=== PATIENT | female | born 1975 | race Caucasian/White ===

== ENCOUNTER 2016-12-26 13:40 | Emergency (ER) | payer BC ==
[2016-12-26 14:38] LABS: #Basophils 0.1 thou/uL (0.0-0.2); #Eosinphils 0.1 thou/uL (0.0-0.7); #Lymphocytes 2.5 thou/uL (1.20-3.40); #Monocytes 0.4 thou/uL (0.11-0.59); #Neutrophils 6.1 thou/uL (1.40-6.50); %Basophils 1.4 % (0.0-1.0); %Eosinophils 0.7 % (0.0-10.0); %Lymphocytes 27.3 % (21.0-51.0); %Monocytes 4.3 % (0.0-10.0); %Neutrophils 66.3 % (42.0-75.0); Hemoglobin 16.6 g/dL (12.0-16.0); Mean Corpuscular HGB CONC 33.8 g/dL (32.0-36.0); Mean Corpuscular Hemoglobin 32.5 pg (27.0-31.0); Mean Corpuscular Volume 96.3 fl (81.0-99.0); Mean Platelet Volume 9.6 fL (7.4-10.4); Platelet Count 251 thou/uL (130-400); RBC Distribution Width 11.1 % (11.5-14.5); White Blood Cell (WBC) Count 9.2 thou/uL (4.8-10.8)
[2016-12-26 14:45] LABS: BHCG - Serum NEGATIVE (NEGATIVE); Pregs Control Background? CLEAR/WHITE (CLR/WHITE); Pregs Control Bar Appear? YES (CONTROL BAR)
[2016-12-26 14:50] LABS: ALT (SGPT) 26 U/L (0-55); Albumin 4.4 g/dL (3.5-5.0); Alkaline Phosphatase 50 U/L (40-150); Anion Gap 14 mmol/L (10-20); BUN (Urea Nitrogen) 11 mg/dL (7.0-18.7); Bilirubin, Total 0.6 mg/dL (0.2-1.2); Calc. Creatinine Clearance 0 mL/min (70-130); Calcium 9.3 mg/dL (7.8-10.44); Carbon Dioxide 22 mmol/L (22-29); Chloride 112 mmol/L (98-107); Estimated GFR-MDRD 78; Globulin 3.1 g/dL (2.4-3.5); Glucose 73 mg/dL (70-105); Potassium 4.6 mmol/L (3.5-5.1); Protein, Total 7.5 g/dL (6.0-8.3); Sodium 143 mmol/L (136-145)
[2016-12-26 14:54] LABS: AST (SGOT) 29 U/L (5-34)
[2016-12-26] MEDS ORDERED: Ketorolac Tromethamine 30 MG/ML VIAL ONE (15:13)
[2016-12-26] MEDS ORDERED: diphenhydrAMINE HCl 50 MG/ML 1 ML VIAL ONE (15:13)
[2016-12-26] MEDS ORDERED: Magnesium Sulfate 2 GM/100 ML BAG ONE (15:13)
[2016-12-26] MEDS ORDERED: Metoclopramide HCl 10 MG/2 ML VIAL ONE (15:15)
--- NOTE | 2016-12-26 15:17 | CT ---
CT BRAIN WITHOUT CONTRAST: Date: 12/26/[address] was done emergently for evaluation of headache. FINDINGS: The ventricles are normal in size with no shift. No intracranial bleeding, extra-axial hematoma, or subarachnoid blood was found. There is no sign of mass, edema, or stroke. The calvarium appears norm al. The visible paranasal sinuses are clear, as are the mastoid air cells. IMPRESSION: No acute intracranial finding. POS: HOME
== END 2016-12-26 14:52 | disposition home or self-care (01) ==
LOC: BURERS 13:40
DX: G43.909 Migraine, unspecified, not intractable, without status migrainosus (principal); F17.210 Nicotine dependence, cigarettes, uncomplicated
CPT/HCPCS: 70450; 80053; 84703; 85025; 96365; 96367; 96375; J1200; J1885; J2765; J3475

== ENCOUNTER 2017-02-03 14:35 | Outpatient (CLI) | payer BC | END 2017-02-03 14:36 | LOC: LABLEX 14:35 | PROVIDERS: ATTEND Family Medicine | DX: R82.90 Unspecified abnormal findings in urine (principal) | CPT/HCPCS: 87086 ==

== ENCOUNTER 2018-08-12 14:22 | Emergency (ER) | payer BC ==
[2018-08-12] MEDS ORDERED: Morphine 4 MG/ML VIAL ONE (14:42)
[2018-08-12] MEDS ORDERED: Ondansetron PF 4 MG/2 ML Vial ONE (14:46)
[2018-08-12 14:52] LABS: #Basophils 0.1 thou/uL (0.0-0.2); #Eosinphils 0.1 thou/uL (0.0-0.7); #Lymphocytes 3.2 thou/uL (1.20-3.40); #Monocytes 0.4 thou/uL (0.11-0.59); #Neutrophils 5.2 thou/uL (1.40-6.50); %Basophils 1.7 % (0.0-1.0); %Eosinophils 0.7 % (0.0-10.0); %Lymphocytes 35.2 % (21.0-51.0); %Monocytes 4.8 % (0.0-10.0); %Neutrophils 57.6 % (42.0-75.0); Hemoglobin 16.4 g/dL (12.0-16.0); Mean Corpuscular HGB CONC 34.2 g/dL (32.0-36.0); Mean Corpuscular Hemoglobin 30.9 pg (27.0-31.0); Mean Corpuscular Volume 90.5 fL (78.0-98.0); Mean Platelet Volume 9.9 fL (7.4-10.4); Platelet Count 295 thou/uL (130-400); RBC Distribution Width 11.3 % (11.5-14.5); Red Blood Cell (RBC) Count 5.32 mill/uL (4.20-5.40)
[2018-08-12 14:56] LABS: Bilirubin Negative (Negative); Blood, Urine Negative (Negative); Clarity Clear (Clear); Glucose, Urine (Dipstick) Negative (Negative); Leukocyte Negative (Negative); Nitrite Negative (Negative); Protein, Urine (Dipstick) Negative (Neg-Trace); Urobilinogen 0.2 mg/dL (0.2-1.0); pH, Urine 7.5 (5.0-9.0)
[2018-08-12 14:58] LABS: Pregnancy Test - Urine (BHCG) Negative (Negative); Pregu Control Background? CLEAR/WHITE (CLR/WHITE); Pregu Control Bar Appear? YES (CONTROL BAR)
[2018-08-12 15:14] LABS: ALT (SGPT) 23 U/L (8-55); AST (SGOT) 19 U/L (5-34); Albumin 4.8 g/dL (3.5-5.0); Alkaline Phosphatase 54 U/L (40-150); Anion Gap 12 mmol/L (10-20); BUN (Urea Nitrogen) 8 mg/dL (7.0-18.7); Bilirubin, Total 0.4 mg/dL (0.2-1.2); Calc. Creatinine Clearance 0 mL/min (70-130); Calcium 9.4 mg/dL (7.8-10.44); Carbon Dioxide 25 mmol/L (22-29); Chloride 109 mmol/L (98-107); Estimated GFR-MDRD 82; Globulin 3.2 g/dL (2.4-3.5); Glucose 82 mg/dL (70-105); Lipase 69 U/L (8-78); Potassium 3.7 mmol/L (3.5-5.1); Sodium 142 mmol/L (136-145)
--- NOTE | 2018-08-12 16:12 | CT ---
CT ABDOMEN AND PELVIS WITH CONTRAST: Date: 08/12/[address] of the abdomen and pelvis was performed for evaluation of right lower quadrant pain. Axial slices were acquired after giving IV contrast. Oral contrast was withheld by request. Coronal and sag ittal reconstructions were done afterwards. FINDINGS: The lung bases are clear. The liver is normal in size. There are a few low density areas seen in the right lobe, which are gene rally 1.0 cm or less in size, that appear to be small cysts. The spleen, pancreas, adrenal glands, an d abdominal aorta show no acute findings. There has been a prior cholecystectomy. The kidneys show no mass, hydronephrosis, or calcification. Neither ureter is dilated and no gross ur eteral calculi were appreciated. No calcifications seen in the urinary bladder. The proximal small bowel is slightly dilated and fluid-filled with some very mid thickening of its wa lls. The findings suggest possible enteritis. The appendix appears normal. There were no inflammatory changes around the bowel. No free air was seen in the upper abdomen. CT of the pelvis shows a small, rounded, rim enhancing area in the right ovary. This is most likely a dominant follicle or collapsing cyst. There is a small amount of free fluid in the right side of the cul-de-sac around it. No other acute changes were seen in the pelvic region. IMPRESSION: 1. Probable small right ovarian cyst or dominant follicle. I would not be surprised if this was a ru ptured cyst as there is a small amount of free fluid in the right side of the cul-de-sac near this ov shanelle. 2. Normal appearing appendix. 3. No urinary tract issues seen. 4. Mild dilation of fluid-filled proximal small bowel. Cannot rule out mild enteritis. Discussed with Dr. Cartwright at 1525 hours on 08/12/18. CODE CR. POS: HOME
== END 2018-08-12 15:42 | disposition home or self-care (01) ==
LOC: BURERS 14:22
DX: N83.201 Unspecified ovarian cyst, right side (principal); Z86.718 Personal history of other venous thrombosis and embolism; F17.210 Nicotine dependence, cigarettes, uncomplicated; Z79.899 Other long term (current) drug therapy
CPT/HCPCS: 74177; 80053; 81003; 81025; 83605; 83690; 85025; 96374; 96375; J2270; J2405

== ENCOUNTER → 2018-09-02 | Emergency (ER) | payer BC ==
[2018-09-02 20:52] LABS: Bilirubin Negative (Negative); Blood, Urine Negative (Negative); Clarity SLIGHTLY (Clear); Glucose, Urine (Dipstick) Negative (Negative); Leukocyte Negative (Negative); Nitrite Negative (Negative); Protein, Urine (Dipstick) Negative (Neg-Trace); Specific Gravity, Urine 1.025 (1.005-1.030); Urobilinogen 0.2 mg/dL (0.2-1.0)
[2018-09-02 20:55] LABS: Pregu Control Background? CLEAR/WHITE (CLR/WHITE); Pregu Control Bar Appear? YES (CONTROL BAR); Specific Gravity 1.025 (1.002-1.036)
[2018-09-02 20:56] LABS: Pregnancy Test - Urine (BHCG) Negative (Negative)
[2018-09-02 21:27] LABS: #Basophils 0.2 thou/uL (0.0-0.2); #Eosinphils 0.1 thou/uL (0.0-0.7); #Monocytes 0.6 thou/uL (0.11-0.59); #Neutrophils 6.3 thou/uL (1.40-6.50); %Basophils 1.6 % (0.0-1.0); %Eosinophils 0.9 % (0.0-10.0); %Lymphocytes 36.2 % (21.0-51.0); %Monocytes 4.9 % (0.0-10.0); %Neutrophils 56.4 % (42.0-75.0); Hemoglobin 14.2 g/dL (12.0-16.0); Mean Corpuscular HGB CONC 35.7 g/dL (32.0-36.0); Mean Corpuscular Hemoglobin 31.6 pg (27.0-31.0); Mean Corpuscular Volume 88.6 fL (78.0-98.0); Mean Platelet Volume 9.8 fL (7.4-10.4); Platelet Count 271 thou/uL (130-400); RBC Distribution Width 11.1 % (11.5-14.5); Red Blood Cell (RBC) Count 4.47 mill/uL (4.20-5.40); White Blood Cell (WBC) Count 11.1 thou/uL (4.8-10.8)
[2018-09-02 21:32] LABS: ALT (SGPT) 22 U/L (8-55); AST (SGOT) 16 U/L (5-34); Albumin 4.4 g/dL (3.5-5.0); Alkaline Phosphatase 49 U/L (40-150); Anion Gap 11 mmol/L (10-20); BUN (Urea Nitrogen) 15 mg/dL (7.0-18.7); Bilirubin, Total 0.4 mg/dL (0.2-1.2); Calc. Creatinine Clearance 0 mL/min (70-130); Calcium 9.1 mg/dL (7.8-10.44); Carbon Dioxide 26 mmol/L (22-29); Chloride 105 mmol/L (98-107); Estimated GFR-MDRD 89; Globulin 2.4 g/dL (2.4-3.5); Glucose 108 mg/dL (70-105); Potassium 3.3 mmol/L (3.5-5.1); Protein, Total 6.8 g/dL (6.0-8.3); Sodium 139 mmol/L (136-145)
--- NOTE | 2018-09-02 23:13 | CT ---
CT ABDOMEN AND PELVIS WITH CONTRAST 09/02/18 Comparison is made with the prior study of 08/12/18. Spiral CT of the abdomen and pelvis was performed using axial slices followed by coronal and sagittal reconstructions. The lung bases are clear. The liver, spleen, pancreas, adrenal glands, kidneys, and abdominal aorta all appeared normal. There is some mild thickening of the berkowitz of the proximal small bowel as mentioned before. It is sli ghtly different but still thick. No terri-intestinal stranding is seen around the small or large bowel . The appendix appears normal. No free air or free fluid was seen. CT of the pelvis showed no pelvic masses, fluid collections or inflammatory changes. There is a 2.0 c m cyst or dominant follicle in the right ovary and a similar 2.1 cm finding in the left ovary. No flu id is seen in the cul-de-sac. An incidental finding is a 2.9 cm ovoid cystic structure in the left inguinal region just posterior t o the femoral artery. It is located at approximately the takeoff of the profunda femoris. It does not appear to connect to any other structure. It is rather benign in appearance. There has been no zimmerman e since the CT of 08/12. IMPRESSION: 1. Mild thickening of the wall of proximal small bowel. Enteritis is possible. 2. 2 cm cystic structures in each adnexa, presumably dominant follicles or small cysts. There is also a small cystic area in the uterine fundus which is probably of no real concern. 3. 2.9 cm ovoid cystic structure in the left inguinal area immediately posterior to the origin o f the profunda femoris artery. It does not appear to arise from these vessels but does displace them somewhat. Significance unknown. An elective ultrasound might be considered. Findings discussed with Dr. Crabtree at 2138 on 09/02/18. POS: HOME
== END ==
LOC: BURERS 20:00
DX: R10.30 Lower abdominal pain, unspecified (principal); F17.210 Nicotine dependence, cigarettes, uncomplicated; Z79.891 Long term (current) use of opiate analgesic; Z79.899 Other long term (current) drug therapy
CPT/HCPCS: 74177; 80053; 81003; 81025; 84443; 85025

== ENCOUNTER 2019-03-29 14:44 | Emergency (ER) | payer BC ==
[~2019-03-29 14:44] MED LIST: Iopamidol 370 76% 100 ML VIAL ONE; Iopamidol 370 76% 50 ML VIAL FS ONE
[2019-03-29 15:38] LABS: #Basophils 0.1 thou/uL (0.0-0.2); #Eosinphils 0.1 thou/uL (0.0-0.7); #Lymphocytes 2.7 thou/uL (1.20-3.40); #Monocytes 0.5 thou/uL (0.11-0.59); #Neutrophils 4.6 thou/uL (1.40-6.50); %Basophils 1.2 % (0.0-1.0); %Eosinophils 0.7 % (0.0-10.0); %Lymphocytes 33.9 % (21.0-51.0); %Monocytes 6.8 % (0.0-10.0); %Neutrophils 57.4 % (42.0-75.0); Mean Corpuscular HGB CONC 32.3 g/dL (32.0-36.0); Mean Corpuscular Hemoglobin 30.6 pg (27.0-31.0); Mean Corpuscular Volume 94.7 fL (78.0-98.0); Mean Platelet Volume 9.8 fL (7.4-10.4); Platelet Count 212 thou/uL (130-400); RBC Distribution Width 11.4 % (11.5-14.5); Red Blood Cell (RBC) Count 4.58 mill/uL (4.20-5.40)
[2019-03-29 15:55] LABS: ALT (SGPT) 20 U/L (8-55); AST (SGOT) 16 U/L (5-34); Albumin 4.4 g/dL (3.5-5.0); Alkaline Phosphatase 48 U/L (40-150); Anion Gap 12 mmol/L (10-20); BUN (Urea Nitrogen) 13 mg/dL (7.0-18.7); Bilirubin, Total 0.3 mg/dL (0.2-1.2); Calc. Creatinine Clearance 0 mL/min (70-130); Calcium 9.4 mg/dL (7.8-10.44); Carbon Dioxide 22 mmol/L (22-29); Chloride 110 mmol/L (98-107); Estimated GFR-MDRD 90; Globulin 2.6 g/dL (2.4-3.5); Glucose 83 mg/dL (70-105); Lipase 41 U/L (8-78); Potassium 4.1 mmol/L (3.5-5.1); Sodium 140 mmol/L (136-145)
[2019-03-29 16:02] LABS: Bilirubin Negative (Negative); Clarity Clear (Clear); Glucose, Urine (Dipstick) Negative (Negative); Leukocyte Negative (Negative); Nitrite Negative (Negative); Protein, Urine (Dipstick) Negative (Neg-Trace); Specific Gravity, Urine 1.015 (1.005-1.030); Urobilinogen 0.2 mg/dL (0.2-1.0); pH, Urine 7.5 (5.0-9.0)
[2019-03-29 16:03] LABS: Blood, Urine Negative (Negative)
[2019-03-29] MEDS ORDERED: Ondansetron PF 4 MG/2 ML Vial ONE (17:38)
[2019-03-29] MEDS ORDERED: Dicyclomine 20 MG TAB ONE (17:38)
[2019-03-29] MEDS ORDERED: Sulfameth/Trimethoprim DS 800-160mg TAB ONE (17:38)
--- NOTE | 2019-03-29 22:33 | CT ---
CT ABDOMEN AND PELVIS WITH CONTRAST: 03/29/19 Comparison is made with the prior study of 09/02/18. CT scan was done using both oral and IV contrast. It is compared with an 09/02/18 scan. The lung bases are clear. The liver is similar in size and appearance to the prior scan. There is a s ubcentimeter cyst or two in the right lobe which I have not changed in the interval. The spleen, panc reas, adrenal glands, kidneys and abdominal aorta were all unremarkable in appearance. There has bee n a prior cholecystectomy. Some of the loops of proximal to mid small bowel seem mildly thickened. He re were a few loops where no contrast was see in the small intestine raising a question of even furth er bowel wall thickening here. The remainder of the small bowel appeared normal. One could question w hether there was some slight thickening of the wall of the right colon but this is a marginal finding at best. No free air or free fluid was seen. CT of the pelvis shows no pelvic masses, free fluid or inflammatory change. There was no sign of dive rticulitis. There is a 2 cm cyst in the left ovary. The prior scan showed similar findings bilaterall y. IMPRESSION: 1. Some small bowel thickening in approximately the mid small bowel region. Enteritis is a possi bility. I would note that there were some similar findings on the 2018 study regarding more proximal small bowel. 2. 2 cm left ovarian cyst, not unlike the prior study. As edges are slightly irregular, it may e jarek be a collapsing cyst. POS: HOME
== END 2019-03-29 18:30 | disposition home or self-care (01) ==
LOC: BURERS 14:44
DX: K52.9 Noninfective gastroenteritis and colitis, unspecified (principal); F17.210 Nicotine dependence, cigarettes, uncomplicated; Z79.01 Long term (current) use of anticoagulants; Z86.718 Personal history of other venous thrombosis and embolism; Z79.899 Other long term (current) drug therapy
CPT/HCPCS: 74177; 81003; 83605; 83690; 96361; 96374; J2405; Q9967

== ENCOUNTER 2020-04-20 14:30 | Emergency (ER) | payer BC ==
[2020-04-20] MEDS ORDERED: Meclizine HCl 25 MG TAB ONE (15:15)
[2020-04-20] MEDS ORDERED: Promethazine 25 MG TAB ONE (15:15)
== END 2020-04-20 15:19 | disposition home or self-care (01) ==
LOC: BURERS 14:30
DX: H81.393 Other peripheral vertigo, bilateral (principal); F17.210 Nicotine dependence, cigarettes, uncomplicated; Z79.01 Long term (current) use of anticoagulants; Z79.891 Long term (current) use of opiate analgesic; Z86.718 Personal history of other venous thrombosis and embolism
CPT/HCPCS: 99283; Q0169

== ENCOUNTER 2020-08-11 15:26 | Emergency (ER) | payer BC ==
[2020-08-11] MEDS ORDERED: traMADol HCl 50 MG TAB ONE (15:59)
[2020-08-11] MEDS ORDERED: AMOXicillin 250 MG CAP ONE (15:59)
== END 2020-08-11 16:04 | disposition home or self-care (01) ==
LOC: BURERS 15:26
DX: N64.4 Mastodynia (principal); M79.7 Fibromyalgia; Z86.718 Personal history of other venous thrombosis and embolism; F17.210 Nicotine dependence, cigarettes, uncomplicated; Z79.899 Other long term (current) drug therapy
CPT/HCPCS: 99283

== ENCOUNTER 2021-04-19 11:06 | Emergency (ER) | payer BC ==
[2021-04-19 22:34] LABS: SARS-CoV-2 PCR by NAA Not Detected (NotDetected)
== END 2021-04-19 12:40 | disposition home or self-care (01) ==
LOC: BURERS 11:06
DX: B34.9 Viral infection, unspecified (principal); Z20.822 Contact with and (suspected) exposure to COVID-19; Z86.718 Personal history of other venous thrombosis and embolism; Z79.899 Other long term (current) drug therapy
CPT/HCPCS: 87804; 99283; U0003; U0005

== ENCOUNTER 2021-08-05 12:10 | Emergency (ER) | payer BC ==
[2021-08-05] MEDS ORDERED: methylPREDNISolone Sod Succ/PF 125 MG/2 ML VIAL ONE (12:52)
== END 2021-08-05 13:20 | disposition home or self-care (01) ==
LOC: BURERS 12:10
DX: T78.40XA Allergy, unspecified, initial encounter (principal); R56.9 Unspecified convulsions; R06.02 Shortness of breath; F17.210 Nicotine dependence, cigarettes, uncomplicated; Z86.718 Personal history of other venous thrombosis and embolism; Z79.899 Other long term (current) drug therapy
CPT/HCPCS: 96372; 99283; J2930

== ENCOUNTER 2022-06-23 11:37 | Emergency (ER) | payer BC ==
[2022-06-23] MEDS ORDERED: methylPREDNISolone Sod Succ/PF 125 MG/2 ML VIAL ONE (12:44)
[2022-06-23] MEDS ORDERED: Ketorolac Tromethamine 30 MG/ML VIAL ONE (12:44)
== END 2022-06-23 12:54 | disposition home or self-care (01) ==
LOC: BURERS 11:37
DX: M79.671 Pain in right foot (principal); Z86.718 Personal history of other venous thrombosis and embolism; F17.210 Nicotine dependence, cigarettes, uncomplicated
CPT/HCPCS: 96372; 99283; J1885; J2930